=== PATIENT | female | born 1975 | race Caucasian/White ===

== ENCOUNTER 2016-06-28 03:33 | Emergency (ER) | payer OTHER ==
[2016-06-28 05:08] VITALS: BP 128/83
== END 2016-06-28 05:09 | disposition home or self-care (01) ==
LOC: ED 03:33
DX: M79.89 Other specified soft tissue disorders (principal)
CPT/HCPCS: Q0092

== ENCOUNTER 2017-02-01 01:47 | Emergency (ER) | payer OTHER ==
[2017-02-01 02:56] VITALS: BP 115/88
== END 2017-02-01 02:57 | disposition home or self-care (01) ==
LOC: ED 01:47
DX: L02.211 Cutaneous abscess of abdominal wall (principal); Z88.1 Allergy status to other antibiotic agents; Z86.14 Personal history of Methicillin resistant Staphylococcus aureus infection

== ENCOUNTER 2017-02-08 02:45 | Emergency (ER) | payer OTHER ==
[~2017-02-08] VITALS: Ht 172.7 cm; Wt 60.8 kg
[2017-02-08 04:43] VITALS: BP 130/89
== END 2017-02-08 04:43 | disposition home or self-care (01) ==
LOC: ED 02:45
DX: L02.211 Cutaneous abscess of abdominal wall (principal); Z88.1 Allergy status to other antibiotic agents
CPT/HCPCS: J1885; J2001

== ENCOUNTER 2017-02-11 05:32 | Emergency (ER) | payer OTHER ==
[2017-02-11 05:36] VITALS: BP 137/85
== END 2017-02-11 06:31 | disposition home or self-care (01) ==
LOC: ED 05:32
DX: Z48.01 Encounter for change or removal of surgical wound dressing (principal); Z88.1 Allergy status to other antibiotic agents

== ENCOUNTER 2017-08-28 03:59 | Emergency (ER) | payer OTHER ==
[~2017-08-28] VITALS: Ht 172.7 cm; Wt 63.0 kg
[2017-08-28 04:02] VITALS: Ht 172.7 cm; Wt 63.0 kg
[2017-08-28 04:29] LABS: BASOPHIL % 1.2 % (0-2); PLATELET COUNT 265 x10^3mcL (130-400); RED CELL DISTRIBUTION WIDTH 14.6 % (11.5-14.5)
[2017-08-28 04:54] LABS: CALCIUM 8.5 mg/dL (8.5-10.1); CARBON DIOXIDE 27.3 mmol/L (21-32); CHLORIDE SERUM 105 mmol/L (98-107); CREATININE SERUM 0.6 mg/dL (0.6-1.0); GFR1 > 60 mL/min; GLUCOSE SERUM 88 mg/dL (74-106); POTASSIUM SERUM 3.7 mmol/L (3.5-5.1); SODIUM SERUM 138 mmol/L (136-145)
[2017-08-28 05:07] LABS: FREE T4 0.81 ng/dL (0.76-1.46); FREE THYROXINE INDEX 2.2 ug/dL (1.4-4.5); T4(THYROXINE) 6.3 ug/dL (4.7-13.3)
[2017-08-28 05:08] LABS: ALBUMIN 4.1 g/dL (3.4-5.0); ALKALINE PHOSPHATASE 76 U/L (46-116); ALT/SGPT 17 U/L (14-59); AST/SGOT 15 U/L (15-37); BILIRUBIN TOTAL 0.32 mg/dL (0.20-1.00)
[2017-08-28 06:29] VITALS: BP 129/78
== END 2017-08-28 05:45 | disposition home or self-care (01) ==
LOC: ED 03:59
PROVIDERS: Emergency Medicine
DX: R60.0 Localized edema (principal); R21 Rash and other nonspecific skin eruption; Z88.1 Allergy status to other antibiotic agents
CPT/HCPCS: 36415; 83880; 84439

== ENCOUNTER 2018-02-24 04:35 | Emergency (ER) | payer OTHER ==
[~2018-02-24] VITALS: Ht 172.7 cm; Wt 62.1 kg
[2018-02-24 04:37] VITALS: Ht 172.7 cm; Wt 62.1 kg
[2018-02-24 06:00] VITALS: BP 142/89
== END 2018-02-24 06:00 | disposition home or self-care (01) ==
LOC: ED 04:35
DX: S13.9XXA Sprain of joints and ligaments of unspecified parts of neck, initial encounter (principal); M25.512 Pain in left shoulder; Z88.8 Allergy status to other drugs, medicaments and biological substances; W17.89XA Other fall from one level to another, initial encounter; Y93.89 Activity, other specified; Y92.89 Other specified places as the place of occurrence of the external cause; Y99.8 Other external cause status